=== PATIENT | female | born 1995 ===

== ENCOUNTER 2022-06-06 01:17 | Inpatient (IN) ==
[2022-06-06] MEDS ORDERED: VANCOMYCIN HCL 1,000 MG in SODIUM CHLORIDE 0.9% 250 ML IV STA (04:53)
[2022-06-06] MEDS ORDERED: LIDOCAINE 1% LOCAL 20 ML VIAL INFIL PRN (04:53)
[2022-06-06] MEDS ORDERED: OXYTOCIN 30 UNITS/500 ML BAG IV PRN ×3 (04:53→16:07)
[2022-06-06] MEDS: LACTATED RINGER'S 1,000 ML IV PRN ×3 (05:10→12:24)
[2022-06-06] MEDS ORDERED: fentaNYL citrate 100 MCG/2 ML VIAL ONE (05:16)
[2022-06-06] MEDS ORDERED: SODIUM CHLORIDE 0.9% INJ 10 ML VIAL ONE (05:16)
[2022-06-06] MEDS ORDERED: ePHEDrine sulfate 50 MG/ML AMP ONE (05:16)
[2022-06-06] MEDS ORDERED: BUPIVACAINE 0.25% 30 ML VIAL ONE (05:17)
[2022-06-06] MEDS ORDERED: fentaNYL 2MCG/ML ROPIVACAINE 1.25MG/ML 100 ML BAG EPI ONE (05:17)
[2022-06-06] MEDS ORDERED: LIDOCAINE 2%/EPINEPHRINE 1:200,000 20 ML SDV ONE (05:17)
[2022-06-06 05:28] LABS: Hemoglobin 12.2 g/dl (12.0-16.0); Mean Corpuscular Hemoglobin 31.7 pg (25.0-34.0); Mean Corpuscular Hgb Conc 34.9 g/dL (32.0-36.0); Mean Corpuscular Volume 90.9 fL (80.0-100.0); Mean Platelet Volume 10.4 fL (9.4-12.3); Platelet Count 234 K/uL (130-400); RDW Coefficient of Variation 12.6 % (11.5-14.5); RDW Standard Deviation 41.4 fL (36.4-46.3); Red Blood Count 3.85 M/uL (3.93-5.22); White Blood Count 11.99 K/ul (4.8-10.8)
[2022-06-06] MEDS ORDERED: NALBUPHINE HCL INJ 10 MG/ML AMP IV PRN (06:04)
[2022-06-06] MEDS ORDERED: diphenhydrAMINE 50 MG/ML VIAL IV PRN (06:04)
[2022-06-06] MEDS ORDERED: ONDANSETRON INJ 2 MG/ML 2 ML VIAL IV PRN (06:04)
[2022-06-06] MEDS ORDERED: NALOXONE HCL 0.4 MG/1 ML VIAL/CARP IV PRN (06:04)
[2022-06-06] MEDS ORDERED: ePHEDrine sulfate 50 MG/ML AMP IV PRN (06:04)
[2022-06-06] MEDS ORDERED: NALOXONE HCL 1 MG in SODIUM CHLORIDE 0.9% 1000ML 1,000 ML IV PRN (06:04)
[2022-06-06] MEDS ORDERED: fentaNYL 2MCG/ML ROPIVACAINE 1.25MG/ML 100 ML BAG EPI PRN (06:04)
--- NOTE | 2022-06-06 06:07 | History & Physical Report ---
Date of Service June 06, 2022 Assessment & Plan (1) Term : Plan: Admit in labor Admission and Anticipated Discharge Date Admission Date: June 06, 2022 History of Present Illness Chief Complaint: onset of labor Primary Care Provider: BREEZY PCP 27 F P0000 at 38.3 with onset of contractions. GBS is positive. Covid is negative. Allergies Allergy/AdvReac Type Severity Reaction Status Date / Time amoxicillin Allergy Hives Verified 06/06/22 01:31 Home Medications Medication Instructions Recorded Confirmed Type L.acidophilus-L.plantarum-B.animalis-B.longum 1 cap PO 1XD 06/06/22 06/06/22 History 2 billion cell capsule (Probiotic Acidophilus Beads) ferrous sulfate 325 mg (65 mg 325 mg PO DAILY 06/06/22 06/06/22 History iron) tablet vitamin-ferrous sulfate 1 tab PO 1XD 06/06/22 06/06/22 History 27 mg iron-folic acid 0.8 mg tablet Patient History Medical History Anemia affecting Surgical History [place] teeth extracted 12 years ago. Social History Smoking Status: Former smoker Age Quit Using Tobacco: 20; Hx Alcohol Use: No Hx Substance Use: No Preferred Language: Citizen Of [place] Communication Ability: Effective Hearing Ability: Normal Electro Mechanical Technologist Required: No Beliefs That Will Affect Care: None marital status: marital status details: Tito Houser- [phone] Current Living Situation: Spouse current occupational status: employed current occupation: [employer]. Other Information That Helps Us Care for You: No Feels Safe at Home: Yes Safety Concerns: Feels Safe At This Time Childhood Exposure to Second-Hand Smoke: No Do you think of yourself as: straight/heterosexual Gender Identity: Female Assistive Devices: Contacts OB History Primip MEDICAL OFFICE ADMINISTRATOR History neg Review of Systems All systems reviewed & are unremarkable except as noted in HPI & below Physical Exam Constitutional: WD/WN, vitals as above Eyes: PERRL, conjunctivae normal, anicteric sclerae Respiratory: normal respiratory effort, lungs clear to auscultation Gastrointestinal (Abdomen): normal bowel sounds, soft, nontender, no hepatosplenomegaly Musculoskeletal: Extremities: extremities normal to inspection Neurologic: patellar DTR's 2+ bilat, sensation intact Psychiatric: A+Ox3, euthymic affect Genitourinary: Manual OB Exam: + cervical dilation 4 cm, + cervical effacement 70% and + station -1 OB Exam Monitor Tracing: + external FHT monitor used, + external uterine monitor used, + category I and + normal FHT variability patient requesting an epidural Results & Data ([facility]) Vital Signs (Past 12 Hours) Vital Signs Temp Pulse Resp BP Pulse Ox 06/06/22 05:59 85 98 06/06/22 05:54 74 94 06/06/22 05:49 66 94 06/06/22 05:48 68 89 L 06/06/22 05:44 80 97 06/06/22 05:41 71 154/94 H 06/06/22 05:39 93 H 98 06/06/22 05:00 20 06/06/22 05:00 20 06/06/22 03:14 68 134/96 06/06/22 01:59 75 147/105 H 06/06/22 01:31 86 139/93 06/06/22 01:40 36.6 C 18 Laboratory Results 06/06/22 06/06/22 04:56 05:12 WBC 11.99 H RBC 3.85 L Hgb 12.2 Hct 35.0 MCV 90.9 MCH 31.7 MCHC 34.9 RDW Std Deviation 41.4 RDW Coeff of Terrie 12.6 Plt Count 234 MPV 10.4 SARS-CoV-2, RNA, NAAT NEGATIVE Monitoring External Monitor Cat 1
--- NOTE | 2022-06-06 06:07 | Anesthesiology Consultation ---
Date of Service June 06, 2022 Assessment & Plan Chart Review Chart Review: Patient NOT seen in Pre Admission Testing and Acceptable Risk for Labor Epidural Consults Requested none ASA ASA2 Proposed Anesthesia Anesthesia Type: Labor Epidural and CSE Risk / Benefits Reviewed With: PT / POA / Parent / Guardian, Accepts Plan and Informed Consent Obtained History Height/Weight Height: 5 ft 8 in Weight: 94.801 kg Allergies Allergy/AdvReac Type Severity Reaction Status Date / Time amoxicillin Allergy Hives Verified 06/06/22 01:31 Medications Home Medications Medication Instructions Recorded Confirmed Last Taken L.acidophilus-L.plantarum-B.animalis-B.longum 1 cap PO 1XD 06/06/22 06/06/22 06/05/22 09:00 2 billion cell capsule (Probiotic Acidophilus Beads) ferrous sulfate 325 mg (65 mg 325 mg PO DAILY 06/06/22 06/06/22 06/05/22 09:00 iron) tablet vitamin-ferrous sulfate 1 tab PO 1XD 06/06/22 06/06/22 06/05/22 09:00 27 mg iron-folic acid 0.8 mg tablet Active Medications Generic Name Dose Route Start Last Admin Trade Name Freq PRN Reason Stop Dose Admin Lactated Ringer's 1,000 mls @ 125 mls/hr 06/06/22 04:53 06/06/22 05:54 Lr IV 06/08/22 04:52 125 mls/hr .Q8H PRN Administration L&D Protocol Protocol Vancomycin HCl 1,000 mg/ 270 mls @ 200 mls/hr 06/06/22 04:53 06/06/22 05:18 Sodium Chloride IV 06/06/22 06:13 200 mls/hr NOW STA Administration NPO Date Last Intake of Fluids: 06/06/22 Time Last Intake of Fluids: 05:00 Date Last Intake of Solids: 06/05/22 Time Last Intake of Solids: 19:00 Past Medical History Medical History Anemia affecting Exercise / Class Metabolic Activity II 4-5 Yardwork/Stairs/Walk up hill Past Surgical History Surgical History [place] teeth extracted 12 years ago. Past Anesthesia History No Hx of Anesthesia Complications and No Family Hx of Anesthesia Complications History of PONV No Hx of PONV and No Hx of Motion Sickness Social History Smoking Status: Former smoker tobacco type: cigarettes Hx Alcohol Use: No Hx Substance Use: No substance use type: does not use Review of Systems no chest pain or sob Physical Exam Vital Signs Last Vital Signs Temp 36.6 C 06/06/22 01:40 Pulse 101 H 06/06/22 06:04 Resp 20 06/06/22 05:00 BP 154/94 H 06/06/22 05:41 Pulse Ox 100 06/06/22 06:04 ENMT Mouth: no TMJ abnormality Thyromental Distance: > or= 3.5 Finger Breadths Mallampati Class: II Neck normal visual inspection Respiratory normal respiratory effort Auscultation: lungs clear to auscultation bilaterally Cardiovascular Rate/Rhythm: regular rate and regular rhythm Musculoskeletal Spine: normal cervical ROM Neurologic moves all extremities Psychiatric Orientation: alert and oriented x 3 Testing Laboratory Results 06/06/22 05:12
--- NOTE | 2022-06-06 08:52 | Labor Progress Brief Note ---
Date of Service June 06, 2022 Assessment & Plan Admission and Anticipated Discharge Date Admission Date: June 06, 2022 Physical Exam Genitourinary: Manual OB Exam: + cervical dilation 4 cm and 5 cm, + cervical effacement 50%, + station high and -1 and + amniotic fluid clear OB Exam Monitor Tracing: + external FHT monitor used, + external uterine monitor used, + category I and + normal FHT variability AROM with Amni-hook with clear fluid. Will start Oxytocin to augment contractions. Results & Data ([facility]) Vital Signs (Past 12 Hours) Vital Signs Temp Pulse Resp BP Pulse Ox 06/06/22 08:49 76 97 06/06/22 08:44 74 95 06/06/22 08:39 71 96 06/06/22 08:40 70 105/63 06/06/22 08:34 73 96 06/06/22 08:29 72 96 06/06/22 08:25 65 100/57 L 06/06/22 08:24 71 96 06/06/22 08:19 82 97 06/06/22 08:14 66 95 06/06/22 08:09 75 95 06/06/22 08:10 73 91/50 L 06/06/22 08:04 90 95 06/06/22 07:59 72 95 06/06/22 07:55 78 110/59 L 06/06/22 07:54 72 95 06/06/22 07:49 72 95 06/06/22 07:44 72 95 06/06/22 07:40 74 123/62 06/06/22 07:39 73 95 06/06/22 07:34 74 94 06/06/22 07:29 76 94 06/06/22 07:25 68 115/70 06/06/22 07:24 73 95 06/06/22 07:19 73 95 06/06/22 07:14 72 96 06/06/22 07:02 20 06/06/22 07:02 36.6 C 20 06/06/22 07:11 81 126/78 06/06/22 07:09 77 96 06/06/22 07:04 77 97 06/06/22 07:00 18 06/06/22 07:00 18 06/06/22 06:59 90 95 06/06/22 06:54 72 95 06/06/22 06:52 81 116/77 01/01/23 06:49 97 06/06/22 06:49 73 06/06/22 06:49 75 120/75 06/06/22 06:44 89 97 06/06/22 06:43 90 135/90 06/06/22 06:39 80 95 06/06/22 06:37 78 124/71 06/06/22 06:34 80 97 06/06/22 06:21 18 06/06/22 06:21 18 06/06/22 06:32 75 120/67 06/06/22 06:29 83 95 06/06/22 06:30 82 18 120/75 06/06/22 06:28 80 123/77 06/06/22 06:26 83 122/77 06/06/22 06:24 96 06/06/22 06:24 83 06/06/22 06:24 75 130/83 06/06/22 06:23 78 132/85 06/06/22 06:20 162 H 157/95 H 06/06/22 06:19 95 H 98 06/06/22 06:18 93 H 156/95 H 06/06/22 06:14 89 99 06/06/22 06:09 76 99 06/06/22 06:04 101 H 100 06/06/22 06:03 73 87 L 06/06/22 05:59 85 98 06/06/22 05:54 74 94 06/06/22 05:49 66 94 06/06/22 05:48 68 89 L 06/06/22 05:44 80 97 06/06/22 05:41 71 154/94 H 06/06/22 05:39 93 H 98 06/06/22 05:00 20 06/06/22 05:00 20 06/06/22 03:14 68 134/96 06/06/22 01:59 75 147/105 H 06/06/22 01:31 86 139/93 06/06/22 01:40 36.6 C 18
[2022-06-06] MEDS ORDERED: VANCOMYCIN HCL 1,000 MG in SODIUM CHLORIDE 0.9% 250 ML IV PRN (15:53)
--- NOTE | 2022-06-06 16:04 | Delivery Summary ---
Vaginal Delivery Summary Date of Service June 06, 2022 Vaginal Delivery Summary Delivery Note live female BUD with nuchal cord x1 reduced at time of delivery of head with delayed cord clamping and Apgars 8/9 weight pending. Cord blood obtained followed by spontaneous delivery of intact placenta. No tears. EBL 100 ml. Final sponge and instrument couint are correct. Mom and baby stable.
[2022-06-06] MEDS ORDERED: OXYTOCIN 20 UNITS in LACTATED RINGER'S 1,000 ML IV SCH (16:07)
[2022-06-06] MEDS ORDERED: bisacodyL 10 MG SUPP PR PRN (16:07)
[2022-06-06] MEDS ORDERED: ACETAMINOPHEN 325 MG TAB PO PRN (16:07)
[2022-06-06] MEDS ORDERED: BENZOCAINE 20% AER SPR 82.5 GM CAN EXT PRN (16:07)
[2022-06-06] MEDS ORDERED: DIPHTHERIA/TETANUS/PERTUSSIS 0.5 ML SYR/VIAL IM ONE (16:07)
[2022-06-06] MEDS ORDERED: HYDROCORTISONE ACETATE 25 MG SUPP PR PRN (16:07)
[2022-06-06] MEDS ORDERED: NON-FORMULARY MEDICATION (Prenatal Vit-Ferrous Sulfat-Fa 27 mg iron- 0.8 mg Tablet) PO SCH (16:07)
[2022-06-06] MEDS: IBUPROFEN 600 MG TAB PO PRN ×2 (17:01→20:54)
--- NOTE | 2022-06-06 17:15 | Anesthesia Procedure Note ---
Date of Service June 06, 2022 Anesthesia Post Epidural Note Vital Signs Vital Signs: Temp Pulse Resp BP Pulse Ox 36.7 C 75 22 137/84 98 06/06/22 13:55 06/06/22 17:01 06/06/22 14:59 06/06/22 17:01 06/06/22 15:44 Pain Intensity Bilateral Abdomen: Pain Intensity: 1 Notes Mental Status: alert / awake / arousable and participated in evaluation Nausea / Vomiting: adequately controlled Pain: adequately controlled Airway Patency, RR, SpO2: stable & adequate BP & HR: stable & adequate Hydration State: stable & adequate Neuraxial Anesthesia: was administered and sensory block is resolving Anesthetic Complications: no major complications apparent Epidural: Removed without complications and With tip intact
[2022-06-06] MEDS: DOCUSATE SODIUM 100 MG CAP PO SCH (20:54)
[2022-06-07] MEDS: IBUPROFEN 600 MG TAB PO PRN ×3 (05:35→20:01)
[2022-06-07 06:49] LABS: Hematocrit (blood only) 30.8 % (34.1-44.9); Hemoglobin 10.4 g/dl (12.0-16.0); Mean Corpuscular Hemoglobin 31.4 pg (25.0-34.0); Mean Corpuscular Hgb Conc 33.8 g/dL (32.0-36.0); Mean Corpuscular Volume 93.1 fL (80.0-100.0); Mean Platelet Volume 10.7 fL (9.4-12.3); Platelet Count 182 K/uL (130-400); RDW Coefficient of Variation 12.9 % (11.5-14.5); RDW Standard Deviation 44.1 fL (36.4-46.3); Red Blood Count 3.31 M/uL (3.93-5.22); White Blood Count 11.18 K/ul (4.8-10.8)
[2022-06-07] MEDS: FERROUS SULFATE 325 MG TAB PO SCH (07:34)
[2022-06-07] MEDS: PRENATAL VITAMIN 1 TAB PO SCH (07:34)
[2022-06-07] MEDS: DOCUSATE SODIUM 100 MG CAP PO SCH ×2 (07:35→21:19)
[2022-06-07] MEDS: ADVANCED PROBIOTIC 1250 MG CAPSULE PO SCH (07:35)
[2022-06-07] MEDS ORDERED: NON-FORMULARY MEDICATION (Ferrous Sulfate 325 mg (65 mg iron) Tablet) PO SCH (09:00)
--- NOTE | 2022-06-07 09:17 | Obstetrical Progress Note ---
Date of Service June 07, 2022 Assessment & Plan Admission and Anticipated Discharge Date Admission Date: June 06, 2022 Subjective Patient is seen and examined. She feels well, no complaints. Ambulating without dizziness Voiding without difficulty Tolerating regular diet with out N&V Bleeding is minimal No fever/ chills/ CP/ SOB/ N&V/ Leg pain Breast feeding without problems Lab Results 06/06/22 06/06/22 06/07/22 Range/Units 04:56 05:12 06:08 WBC 11.99 H 11.18 H (4.8-10.8) K/ul RBC 3.85 L 3.31 L (3.93-5.22) M/uL Hgb 12.2 10.4 L (12.0-16.0) g/dl Hct 35.0 30.8 L (34.1-44.9) % MCV 90.9 93.1 (80.0-100.0) fL MCH 31.7 31.4 (25.0-34.0) pg MCHC 34.9 33.8 (32.0-36.0) g/dL RDW Std Deviation 41.4 44.1 (36.4-46.3) fL RDW Coeff of Terrie 12.6 12.9 (11.5-14.5) % Plt Count 234 182 (130-400) K/uL MPV 10.4 10.7 (9.4-12.3) fL SARS-CoV-2, RNA, NAAT NEGATIVE (NEGATIVE) Vital Signs Temp Pulse Resp BP Pulse Ox O2 Del Method 06/07/22 07:40 Room Air 06/07/22 07:40 36.4 C L 69 16 113/77 98 Room Air 06/07/22 03:00 36.6 C 75 16 100/66 98 Room Air 06/07/22 00:04 36.6 C 80 16 116/77 98 Room Air PE: General: Alert, orientedx3, NAD Abd: soft, NT, fundus firm, below Umbilicus Perineum intact, Lochia rubra minimal Ext; NT, no edema AP: 27 yo s/p , ppd# 1 VSS Afebrile doing well Continue routine care All questions were answered D/C home tomorrow Results & Data ([facility]) Vital Signs (Past 12 Hours) Vital Signs Temp Pulse Resp BP Pulse Ox O2 Del Method 06/07/22 07:40 Room Air 06/07/22 07:40 36.4 C L 69 16 113/77 98 Room Air 06/07/22 03:00 36.6 C 75 16 100/66 98 Room Air 06/07/22 00:04 36.6 C 80 16 116/77 98 Room Air
[2022-06-07] MEDS ORDERED: bisacodyL 5 MG TABEC PO SCH (20:00)
[2022-06-08 07:48] LABS: Hematocrit (blood only) 32.5 % (34.1-44.9); Hemoglobin 11.1 g/dl (12.0-16.0)
[2022-06-08] MEDS: DOCUSATE SODIUM 100 MG CAP PO SCH (09:07)
[2022-06-08] MEDS: PRENATAL VITAMIN 1 TAB PO SCH (09:08)
[2022-06-08] MEDS: IBUPROFEN 600 MG TAB PO PRN (09:08)
[2022-06-08] MEDS: FERROUS SULFATE 325 MG TAB PO SCH (09:08)
[2022-06-08] MEDS: ADVANCED PROBIOTIC 1250 MG CAPSULE PO SCH (09:09)
--- NOTE | 2022-06-08 10:10 | Obstetrical Progress Note ---
Date of Service June 08, 2022 Subjective Ambulation: ambulating normally Voiding: no voiding problems Passing Gas:: Yes Diet Tolerance:: regular diet Lochia:: Small Feeding Type:: breast feeding Current Pain Level(1-10): 0 Review of Systems All systems reviewed & are unremarkable except as noted in HPI & below Physical Exam Constitutional WD/WN, vitals as above Gastrointestinal (Abdomen) Inspection/Auscultation: abdomen normal to inspection fundus firm. abdomen soft and non-tender Musculoskeletal Extremities: extremities normal to inspection Skin no rashes, warm and dry Neurologic patellar DTR's 2+ bilat, sensation intact Psychiatric A+Ox3, euthymic affect Results & Data ([facility]) Vital Signs (Past 12 Hours) Vital Signs Temp Pulse Resp BP Pulse Ox O2 Del Method 06/08/22 08:00 36.6 C 75 18 128/88 96 Room Air 06/08/22 00:25 36.6 C 69 18 117/79 98 Room Air
== END 2022-06-08 12:50 | disposition home or self-care (01) | DRG 807 ==
LOC: OPB 01:17 → 4S1 01:23 → 4E2 18:50